=== PATIENT | male | born 1935 ===

== ENCOUNTER → 2018-06-24 | Outpatient (CLI) | payer OTHER ==
--- NOTE | 2018-06-24 18:21 | CONS ---
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 Patient has significant symptoms of his osteoarthritis. However he has not exhausted all conservative treatment. In addition he had a myocardial infarction only 2 to 3 months ago with 3 coronary artery stents placed. Therefore he is not a surgical candidate at this time. I am recommending Right knee steroid injection. the patient does have some interest in this however he is unsure at this time but if he wants to proceed with that. He will let us know when he decides. Plan: Submit authorization for right knee steroid injection. Physical therapy for right knee arthritis Low impact activity Ice Follow-up for right knee steroid injection Consultation Date/Type/Reason Admit Date/Time Date of Consultation: June 24, 2018 Reason for Consultation Right knee pain Date/Time of Note DATE: 06/24/18 TIME: 18:14 Hx of Present Illness This is a 82-year-old male with a chief complaint of right knee pain. The pain began approximately 3-4 years ago. The patients pain is in the medial aspect of the right knee. Pain is not radiating to the lower leg. The pain is rated as a 5/10. The patient does have chronic tingling in bilateral feet from unknown peripheral neuropathy. The pain is exacerbated by climbing stairs and ambulation. Of note the patient did have a recent myocardial infarction in March 2018. He had 3 stents placed. He is currently on dual antiplatelet therapy. Duration: 3-4-year Injury: This no Walking tolerance: 15-minute Limp: Yes Support: No Swelling: Occasional Crepitation: Yes Instability: No Stairs: Avoids Physical Therapy: Yes Injections: No NSAIDs: Contraindicated secondary to cardiac disease Prior surgery: No Back pain: No Hip pain: No Risk of AVN : No Patient denies fever, chills, shortness of breath, chest pain, nausea/vomiting, constipation, diarrhea, numbness, and tingling. Past Medical History Myocardial infarction March 2018 Hypertension Arrhythmia Peripheral neuropathy Past Surgical History 3 coronary artery stentsFebruary 2019 Partial cholectomy Family History Significant Family History: no pertinent family hx Social History Alcohol Use: none Smoking Status: Former smoker Drug Use: none Exam/Review of Systems Exam Vitals Weight: 140 pounds Height: 5 feet 10 inches Temperature: 98.2 Heart Rate: 48 Blood Pressure: 159/72 Respiratory Rate: 14 Exam General: Alert, oriented x3. No Acute Distress. Heart: Regular rate and rhythm. Lungs: No respiratory distress. No accessory muscle use. Musculoskeletal: Right Knee This is a well developed male who is alert, oriented times three and in no apparent distress. Skin is intact over the right knee as well as the lower extremity with no ab rasions, lacerations, or ulcerations. Observation of the patient's gait reveals an antalgic gait with Varus thrust. Frontal plane alignment is varus. There is pain on palpation of medial joint line. The patient demonstrates grinding anteriorly with ROM. Range of motion: 3 extension to approximately 140 degrees of flexion. Collateral ligament testing reveals no instability with varus or valgus stress at 0 and 30 degrees of flexion. Negative Cam's and negative posterior drawer. Neurovascularly intact with 5/5 EHL/tibialis anterior/gastroc. Sensation intact to light touch in a sural, saphenous, deep peroneal, superficial peroneal, medial and lateral plantar nerve distribution. Palpable, symmetric dorsalis pedis and posterior tibial pulses in both lower ex tremities. Hip examination normal. Imaging Imaging The patient received a standard set of films today that were personally reviewed. Imaging included a standing bilateral knee AP, PA flexion, merchant views and a dedicated lateral of the affected knee: There is varus alignment of the knee. There is complete loss of joint space medial compartment(s). There is osteophyte formation. There is subchondral sclerosis. There are subchondral cysts. Degenerative changes are most severe in the medial compartment(s) SOLO CARRILLO MD June 24, 2018 18:21
--- NOTE | 2018-06-26 13:37 | RADRPT ---
PROCEDURE: XR bilateral knees CLINICAL INDICATION: Pain TECHNIQUE: Bilateral weightbearing PA tunnel, bilateral AP weight bearing and bilateral sunrise vie ws as well as weightbearing lateral views of the left and right knees. COMPARISON: None FINDINGS: Right knee: Mineralization is intact. No displaced fracture identified. Severe medial tibio-femoral compartment cartilage space narrowing on AP weightbearing view, with subchondral sclerosis, and likel y moderate to severe on PA weightbearing view which is suboptimal. Mild marginal osteophyte formation in the lateral tibio-femoral compartment without definite cartilage space narrowing on PA weightbear ing view and no cartilage space narrowing on AP weightbearing view. Mild chondrocalcinosis. Marginal osteophyte formation and likely up to moderate central patellofemoral compartment cartilage space ronald rowing. Hypertrophic change at the proximal tibiofibular joint. Small joint effusion. Left knee: Mineralization is intact. No displaced fracture identified. There is mild medial tibio-fe moral compartment cartilage space narrowing on AP and PA weightbearing view with minimal marginal ost eophytic lipping. Minimal lateral tibio-femoral marginal osteophytic lipping without significant cart ilage space narrowing. Patellofemoral marginal osteophyte formation with borderline mild central cart ilage space narrowing. No significant joint effusion. Tiny superior patellar enthesophyte. IMPRESSION: 1. Severe medial tibio-femoral and up to moderate patellofemoral osteoarthritis of the right knee. S mall right knee joint effusion. 2. Mild medial tibio-femoral and minimal patellofemoral osteoarthritis of the left knee. RPTAT: BBDD Physician Alexandrea Date Time Electronically viewed and signed by Physician Alexandrea on 06/26/2018 13:37 CORINNE/
== END | disposition home or self-care (01) ==
LOC: HKI 14:29
PROVIDERS: ATTEND Orthopaedic Surgery Adult Reconstructive Orthopaedic Surgery
DX: M17.11 Unilateral primary osteoarthritis, right knee (principal); M21.161 Varus deformity, not elsewhere classified, right knee; M85.40 Solitary bone cyst, unspecified site; Z87.891 Personal history of nicotine dependence
CPT/HCPCS: 73564; Z7500; G0463